=== PATIENT | male | born 1995 | race Caucasian/White ===

== ENCOUNTER 2020-10-27 16:07 | Emergency (ER) | payer OTHER ==
--- NOTE | 2020-10-27 16:36 | ED ---
General Adult HPI - General Source: patient, RN notes reviewed Mode of arrival: ambulatory Limitations: no limitations <Naveed Rodriguez - Last Filed: 10/27/20 16:35> <Bob Johnson - Last Filed: 10/27/20 18:11> - General Stated complaint: Headache,SOB,Sent from [employer] Time Seen by Provider: 10/27/20 16:30 - History of Present Illness Initial comments: This is a 25-year-old male presents emergency Department with urgent care chief complaint headache 9 days. Patient states his headaches on alleviated. Patient had a rapid [employer] tests a strep test which is negative. Patient states he normally does not suffer with headaches like this. No fevers or chills no cough or cold-like symptoms. No GI symptoms. Denies any trauma. (Naveed Rodriguez) 25-year-old male without any significant past medical history aside from autism presents to the emergency room for a chief complaint of headache. Patient reports he has had headache all around his head for 9 days. States it comes and goes. Patient states that he has been taking Tylenol and it does not seem to be helping. No vomiting. No confusion. No difficulty walking. No extremity weakness. (Bob Johnson) - Related Data Allergies Allergy/AdvReac Type Severity Reaction Status Date / Time No Known Allergies Allergy Verified 10/27/20 16:34 Review of Systems ROS Other: All systems not noted in ROS Statement are negative. <Naveed Rodriguez - Last Filed: 10/27/20 16:35> ROS Other: All systems not noted in ROS Statement are negative. <Bob Johnson - Last Filed: 10/27/20 18:11> ROS Statement: Those systems with pertinent positive or pertinent negative responses have been documented in the HPI. General Exam General appearance: alert, in no apparent distress Head exam: Present: atraumatic, normocephalic, normal inspection Eye exam: Present: normal appearance, PERRL, EOMI. Absent: scleral icterus, conjunctival injection, periorbital swelling ENT exam: Present: normal exam, mucous membranes moist Neck exam: Present: normal inspection, full ROM. Absent: tenderness, meningismus, lymphadenopathy Respiratory exam: Present: normal lung sounds bilaterally. Absent: respiratory distress, wheezes, rales, rhonchi, stridor Cardiovascular Exam: Present: regular rate, normal rhythm, normal heart sounds. Absent: systolic murmur, diastolic murmur, rubs, gallop, clicks GI/Abdominal exam: Present: soft, normal bowel sounds. Absent: distended, tenderness, guarding, rebound, rigid Neurological exam: Present: alert, oriented X3, CN II-XII intact, normal gait Psychiatric exam: Present: normal affect, normal mood <Bob Johnson - Last Filed: 10/27/20 18:11> Course Vital Signs 10/27/20 16:34 Temperature 98.1 F Pulse Rate 91 Respiratory 16 Rate Blood Pressure 122/67 O2 Sat by Pulse 96 Oximetry Medical Decision Making <Bob Johnson - Last Filed: 10/27/20 18:11> - Medical Decision Making CT brain is negative. There is no sign of intracranial hemorrhage. No mass effect or midline shift. I did offer patient an IV or IM medication and he does not want this. States his pain is minimal at this time. He does agree to try Motrin. Recommended patient follow-up with his primary care doctor to obtain an MRI. If symptoms worsen he will return here to the emergency room. (Bob Johnson) Disposition <Naveed Rodriguez M - Last Filed: 10/27/20 16:35> Is patient prescribed a controlled substance at d/c from ED?: No Time of Disposition: 18:11 <Bob Johnson - Last Filed: 10/27/20 18:11> Clinical Impression: Headache Disposition: HOME SELF-CARE Condition: Good Instructions (If sedation given, give patient instructions): Acute Headache (ED) Additional Instructions: Please take Motrin and Tylenol for pain. Please follow-up with primary care in 1-2 days. You may need an MRI. Return to the emergency room for any worsening symptoms. Referrals: Marciano Randle MD [Primary Care Provider] - 1-2 days
[2020-10-27 16:37] VITALS: BP 122/67; PULSE 91; RESP 16; TEMP 98.1
--- NOTE | 2020-10-27 17:03 | CT ---
EXAMINATION TYPE: CT brain wo con DATE OF EXAM: 10/27/2020 COMPARISON: None HISTORY: headache CT DLP: 1066.4 mGycm Automated exposure control for dose reduction was used. The ventricles and sulci appear normal. There is no mass effect nor midline shift. There is no sign o f intracranial hemorrhage. There is no evidence of cerebral edema. The calvarium is intact. There is normal aeration of the mastoid sinuses. IMPRESSION: Normal unenhanced head CT scan.
[2020-10-27] MEDS ORDERED: IBUPROFEN 600 MG TAB PO STA (17:59)
== END 2020-10-27 18:24 | disposition home or self-care (01) ==
LOC: EC 16:07
DX: R51.9 Headache, unspecified (principal)
CPT/HCPCS: 70450; 99285